=== PATIENT | female | born 1930 | race Caucasian/White ===

== ENCOUNTER 2017-07-23 20:26 | Inpatient (IN) | payer MEDICARE, OTHER ==
[~2017-07-23] VITALS: Ht 160 cm; Wt 88.9 kg
[~2017-07-23 20:26] MED LIST: CARTIA XT180 MG PO; GLUCOPHAGE XL500 MG PO; HYDROCHLOROTHIA25 MG PO; METFORMIN HCL500 M2 PO; PROTONIX40 MG PO; SENNA LAX8.6 MG PO; SYNTHROID125 MCG PO; TOPROL XL25 MG PO; Z.0.CARTIA XT180 MG PO; Z.0.HYDROCHLOROTHIA5 PO; Z.0.METOPROLOL SUCC2 PO; Z.0.SIMVASTATIN20 MG PO; Z.0.SYNTHROID150 MCG PO; ZOCOR20 MG PO
[2017-07-23] MEDS ORDERED: DIATRIZOATE MEGL/DIATRIZOA SOD 30 ML BTL PO ONE (20:54)
[2017-07-23 21:03] LABS: BASOPHILS # (AUTO) 0.1 (0.0-0.1); BASOPHILS % 0.7 % (0.0-1.0); EOSINOPHILS # (AUTO) 0.4 (0.0-0.4); EOSINOPHILS % 5.7 % (0.0-6.0); HEMATOCRIT 44.1 % (34.2-44.1); LYMPHOCYTES # (AUTO) 1.5 (1.0-3.2); LYMPHOCYTES % 22.3 % (18.0-39.1); MEAN CORPUSCULAR HEMOGLOBIN 31.8 pg (28-32); MEAN CORPUSCULAR VOLUME 93.4 fL (81-99); MONOCYTES # (AUTO) 0.6 (0.2-0.8); MONOCYTES % 9.1 % (4.4-11.3); NEUTROPHILS # (AUTO) 4.2 (2.1-6.9); NEUTROPHILS % 62.1 % (38.7-80.0); PLATELET COUNT 223 x10e3/uL (140-360); RED BLOOD COUNT 4.72 x10e6/uL (3.6-5.1); RED CELL DISTRIBUTION WIDTH 13.2 % (11.7-14.4)
[2017-07-23 21:15] LABS: INR 1.03; PROTHROMBIN TIME 12.7 seconds (11.9-14.5)
[2017-07-23 21:16] LABS: PARTIAL THROMBOPLASTIN TIME 33.5 seconds (23.8-35.5)
[2017-07-23] MEDS ORDERED: ONDANSETRON HCL INJ 2 MG/ML VIAL IV STA (21:16)
[2017-07-23 21:18] LABS: BILIRUBIN,URINE NEGATIVE (NEGATIVE); CLARITY,URINE CLEAR (CLEAR); COLOR,URINE YELLOW (YELLOW); KETONES,URINE NEGATIVE (NEGATIVE); LEUKOCYTE ESTERASE ,URINE NEGATIVE (NEGATIVE); NITRITE,URINE NEGATIVE (NEGATIVE); PROTEIN,URINE DIPSTICK NEGATIVE (NEGATIVE); URINE UROBILINOGEN 0.2 mg/dL (0.2 - 1)
[2017-07-23] MEDS ORDERED: ONDANSETRON HCL INJ 2 MG/ML VIAL ONE (21:22)
[2017-07-23 21:25] LABS: ALBUMIN 4.2 g/dL (3.5-5.0); ALBUMIN/GLOBULIN RATIO 1.3 (0.8-2.0); ANION GAP 15.4 mmol/L (8-16); CREATININE, SERUM 1.03 mg/dL (0.57-1.11); POTASSIUM 3.4 mmol/L (3.5-5.1)
[2017-07-23 21:39] LABS: BACTERIA,URINE FEW /HPF; EPITHELIAL CELLS,URINE FEW /LPF; RBC,URINE 0-5 /HPF (0-5); WBC,URINE (MAN) 0-5 /HPF (0-5)
[2017-07-23] MEDS: SODIUM CHLORIDE 0.9% 1000ML 1,000 ML IV SCH (21:41)
[2017-07-23] MEDS ORDERED: IOPAMIDOL 370 MG/ML 200 ML INFUS..BTL INJ ONE (22:17)
[2017-07-23] MEDS ORDERED: SODIUM CHLORIDE 0.9% 50ML 50 ML ONE (22:17)
[2017-07-23] MEDS ORDERED: DILTIAZEM 24HR180 MG PO (23:02)
[2017-07-23] MEDS ORDERED: SYNTHROID125 MCG PO (23:03)
[2017-07-23] MEDS ORDERED: METFORMIN HCL500 MG PO (23:03)
[2017-07-23] MEDS ORDERED: ANASTROZOLE1 MG PO (23:03)
[2017-07-23] MEDS ORDERED: HYDROCHLOROTHIA25 MG PO (23:04)
[2017-07-23] MEDS ORDERED: METOPROLOL SUCC50 MG PO (23:04)
[2017-07-23] MEDS ORDERED: SIMVASTATIN20 MG PO (23:04)
[2017-07-23] MEDS ORDERED: ASPIR 8181 MG PO (23:05)
[2017-07-23] MEDS ORDERED: VITAMIN E400 UNI1 PO (23:05)
[2017-07-23] MEDS ORDERED: ALEVE220 M1 PO (23:06)
--- NOTE | 2017-07-23 23:53 | Diagnostic Imaging Report ---
EXAM: CT Abdomen and Pelvis WITH contrast INDICATION: GI bleeding COMPARISON: 03/04/2011 TECHNIQUE: Abdomen and pelvis were scanned utilizing a multidetector helical scanner from the lung base to the pubic symphysis after administration of IV contrast. Coronal and sagittal reformations were obtained. Routine protocol was performed. Scan was performed when during portal venous phase. IV CONTRAST: 100 mL of Isovue-370 ORAL CONTRAST: Gastrografin RADIATION DOSE: Total DLP: 760.44 mGy*cm Estimated effective dose: (DLP x 0.015 x size factor) mSv COMPLICATIONS: None FINDINGS: LINES and TUBES: None. LOWER THORAX: There is bibasilar atelectasis. Coronary artery disease noted and severe calcification of the mitral annulus. HEPATOBILIARY: Stable, focal hypodensity in the right lobe of the liver suggestive of prior hepatic infarct and cystic degeneration. There are multiple scattered too small to characterize hypodensities in the liver, likely benign. No biliary ductal dilation. GALLBLADDER: No radio-opaque stones or sludge. No wall thickening. SPLEEN: No splenomegaly. PANCREAS: No focal masses or ductal dilatation. ADRENALS: No adrenal nodules KIDNEYS/URETERS: Kidneys enhance symmetrically. No hydronephrosis. 4.5 cm right renal simple cyst. Additional bilateral too small to characterize hypodensities, most likely renal cysts. No stones. GI TRACT: No abnormal distention, wall thickening, or evidence of bowel obstruction. There are diverticula within the colon without evidence of diverticulitis. Appendix is normal. PELVIC ORGANS/BLADDER: There are postop changes of hysterectomy and bilateral oophorectomies. LYMPH NODES: No lymphadenopathy. VESSELS: There is moderate atherosclerotic disease in the aorta and major arterial branches. PERITONEUM / RETROPERITONEUM: Postsurgical changes in the left lower quadrant BONES: There are degenerative changes in the lumbar spine. SOFT TISSUES: Small anterior ventral hernia containing few loops of the small bowel without obstruction best seen on sagittal image 75 IMPRESSION: 1. No evidence of acute intra-abdominal or pelvic abnormality. 2. The development of 4.5 cm right renal simple cyst. 3. Otherwise, stable examination. Signed by: Dr. Del Campbell M.D. on 07/23/2017 11:50 PM
[2017-07-24] VITALS (7 sets, daily range): BP systolic 129–165; BP diastolic 60–79
[2017-07-24] MEDS: SODIUM CHLORIDE 0.9% 1000ML 1,000 ML IV SCH ×4 (00:13→08:10)
[2017-07-24] MEDS ORDERED: DEXTROSE 50% SYRINGE 50 ML IV PRN (00:15)
--- OUTSIDE RECORDS SUMMARY | 2017-07-24 00:22 | XMS REPORT ---
Author Author [facility] Address Unknown Phone Unavailable Care Team Providers Care Beverage Manager Name Role Phone BRITT KEARNS Unavailable Unavailable Problems This patient has no known problems. Allergies, Adverse Reactions, Alerts This patient has no known allergies or adverse reactions. Medications This patient has no known medications. Results Test Description Test Time Test Comments Text Results Atomic Results Result Comments CT ABDOMEN/PELVIS W [place] [address] Patient Name: FARIBA HUERTA MR #: [id number] : 1930 Age/Sex: 86/F Req #: [id number] Adm Physician: Ordered by: BRITT KEARNS MD Report #: [id number] Location: ER Room/Bed: ___ Procedure: [id number] CT/CT ABDOMEN/PELVIS W Exam Date: 07/23/17 Exam Time: 2228 REPORT STATUS: Signed EXAM: CT Abdomen and Pelvis WITH contrast INDICATION: GI bleeding COMPARISON: 2010 TECHNIQUE: Abdomen and pelvis were scanned utilizing a multidetector helical scanner from the lung base to the pubic symphysis after administration of IV contrast. Coronal and sagittal reformations were obtained. Routine protocol was performed. Scan was performed when during portal venous phase. IV CONTRAST: 100 mL of Isovue-370 ORAL CONTRAST: Gastrografin RADIATION DOSE: Total DLP: 760.44 mGy*cm Estimated effective dose: (DLP x 0.015 x size factor) mSv COMPLICATIONS: None FINDINGS: LINES and TUBES: None. LOWER THORAX: There is bibasilar atelectasis. Coronary artery disease noted and severe calcification of the mitral annulus. HEPATOBILIARY: Stable, focal hypodensity in the right lobe of the liver suggestive of prior hepatic infarct and cystic degeneration. There are multiple scattered too small to characterize hypodensities in the liver, likely benign. No biliary ductal dilation. GALLBLADDER: No radio-opaque stones or sludge. No wall thickening. SPLEEN: No splenomegaly. PANCREAS: No focal masses or ductal dilatation. ADRENALS: No adrenal nodules KIDNEYS/URETERS : Kidneys enhance symmetrically. No hydronephrosis. 4.5 cm right renal simple cyst. Additional bilateral too small to characterize hypodensities, most likely renal cysts. No stones. GI TRACT: No abnormal distention, wall thickening, or evidence of bowel obstruction. There are diverticula within the colon without evidence of diverticulitis. Appendix is normal. PELVIC ORGANS/BLADDER: There are postop changes of hysterectomy and bilateral oophorectomies. LYMPH NODES: No lymphadenopathy. VESSELS: There is moderate atherosclerotic disease in the aorta and major arterial branches. PERITONEUM / RETROPERITONEUM: Postsurgical changes in the left lower quadrant BONES: There are degenerative changes in the lumbar spine. SOFT TISSUES: Small anterior ventral hernia containing few loops of the small bowel without obstruction best seen on sagittal image 75 IMPRESSION: 1. No evidence of acute intra-abdominal or pelvic abnormality. 2. The development of 4.5 cm right renal simple cyst. 3. Otherwise, stable examination. Signed by: Dr. Del Campbell M.D. on 07/23/2017 11:50 PM Dictated By: DEL LAGUERRE MD [id number] Transcribed By: KULWINDER on 07/23/17 8105 COPY TO: BRITT KEARNS MD
[2017-07-24] MEDS ORDERED: PNEUMOCOCCAL VACCINE POLYVALENT 23 MCG/0.5 ML VIAL IM ONE (05:15)
[2017-07-24] MEDS ORDERED: LEVOTHYROXINE SODIUM 125 MCG TAB PO SCH (06:30)
[2017-07-24] MEDS: INSULIN REGULAR, HUMAN 100 UNIT/1 ML 3ML VIAL SQ SCH ×4 (07:30→21:00)
[2017-07-24 08:35] LABS: HEMATOCRIT 39.3 % (34.2-44.1)
[2017-07-24] MEDS: DILTIAZEM HCL 180 MG CAP CD PO SCH (09:54)
[2017-07-24] MEDS: HYDROCHLOROTHIAZIDE 25 MG TAB PO SCH (09:54)
[2017-07-24] MEDS: VITAMIN E 400 UNIT CAP PO SCH (09:54)
[2017-07-24] MEDS: PANTOPRAZOLE 40 MG 10ML VIAL IV SCH (09:54)
[2017-07-24] MEDS: METOPROLOL SUCCINATE 50 MG TAB XL PO SCH (09:54)
[2017-07-24] MEDS: ANASTROZOLE 1 MG TAB PO SCH (09:54)
[2017-07-24 14:42] LABS: HEMOGLOBIN 12.9 g/dL (12.0-16.0)
--- NOTE | 2017-07-24 20:08 | History and Physical ---
PRIMARY CARE PROVIDER: Dr. Tommie Hale. CHIEF COMPLAINT: Rectal bleeding. HISTORY OF PRESENT ILLNESS: Ms. Adrian is an 86-year-old lady presenting with rectal bleeding times 1 day. It was still present when she presented to the ER. The patient has a history of diverticulosis. She has had 2 episodes of diverticular bleeding in the past and had a sigmoid resection due to diverticulosis with reversal subsequent 6 months later that was done in 1998. She had an episode of diverticular bleeding in 2010 and again in 2014. She had a colonoscopy done during the admission in 2014 which was here. She did not require blood transfusion at that time. Colonoscopy showed diverticulosis and hemorrhoids. REVIEW OF SYSTEMS: She denies fever, chills or weight loss. She denies sinus congestion or sore throat. She denies chest pain or palpitations. She denies shortness breath, wheezing or cough. Denies abdominal pain, diarrhea, nausea or vomiting. She has had bright red blood per rectum, hematochezia. She denies abdominal pain. She denies dysuria or flank pain. She denies rash or pruritus. She has bleeding as noted. She denies bruising and petechiae. She denies headache, vertigo or loss of consciousness. She denies depression, agitation, homicidal or suicidal ideation. PAST MEDICAL HISTORY: Significant for longstanding hypertension and type 2 diabetes and diverticulosis. As noted, the patient had a sigmoid resection for the diverticulosis in 1998. She has a distant history of hysterectomy. She had a partial thyroid resection for a goiter. She has had carpal tunnel surgery. She has had one knee replaced and she has had hernia repair. . REGULAR MEDICATIONS: Anastrozole 1 mg daily;+ evidently she also has a history of breast cancer. She is on diltiazem ER 240 mg daily. Hydrochlorothiazide 50 mg daily. Levothyroxine 125 mcg daily. Metoprolol ER 50 mg daily. Simvastatin 20 mg at bedtime. Vitamin E 400 units daily. Naprosyn 440 mg daily. Metformin 500 mg daily and aspirin 81 mg daily. ALLERGIES: PENICILLIN. FAMILY HISTORY: Remarkable for hypertension and diabetes. SOCIAL HISTORY: The patient is . Lithuanian is her primary language. She does not smoke, drink or use illegal drugs. She is generally independently functioning. PHYSICAL EXAM: PSYCHIATRIC: She is alert and oriented times 3 with normal mood and affect. CONSTITUTIONAL: She has a normal body habitus. Is in no acute distress. VITAL SIGNS: Blood pressure 143/67. Pulse 73 and regular. Respiratory rate 20. O2 sat 96% on room air. Temperature 97.1. HEENT: Head is atraumatic. Eyes are anicteric with clear conjunctivae. Ears and nares are without erythema or discharge. Oropharynx is clear. NECK: Is supple with no mass or thyromegaly. LYMPHATIC SYSTEM: Has no palpable cervical, axillary or inguinal adenopathy. CARDIOVASCULAR: Her heart has a regular rate and rhythm without murmur or extra heart sounds. No carotid bruits. No peripheral edema. Has palpable dorsal pedal pulses. RESPIRATORY: Clear to auscultation and percussion with normal respiratory effort. GASTROINTESTINAL: Abdomen is soft without organomegaly, masses or tenderness. Normal bowel sounds present. She has gross red blood per rectum on admission. CUTANEOUS: Her skin is warm and dry to touch with no rash or skin breakdown. MUSCULOSKELETAL: Joints are in normal alignment without erythema or swelling. She has no calf tenderness. NEUROLOGIC: Exam is nonfocal with intact cranial nerves and no motor or sensory deficits. DIAGNOSTIC STUDIES: CT scan of the abdomen shows no acute disease. UA is clear. CBC shows a white count of 6.72 with a normal differential. Hemoglobin 15.0, hematocrit 44.1 and platelet count 223,000. Subsequent hemoglobin 13.0, hematocrit 39.3, and hemoglobin 12.9 and hematocrit 38.0 at 6 hour intervals. Her coags are normal. Her chemistry shows a potassium of 3.4. Rest of her electrolytes are normal. CO2 is 29. Creatinine 1.03. BUN 22 for a GFR of 51. Calcium is 10.0. Glucose is 129 and then subsequently 119 and 119. Amylase 62. Lipase 43. Transaminases, bilirubin and alkaline phos are all normal. IMPRESSION AND PLAN 1. Hematochezia/rectal bleeding. Most likely due to the diverticulosis. The patient does not have diverticulitis and is nontender. There is no need for antibiotics. She has had no further bleeding today. Her hemoglobin and hematocrit is stable after the initial drop with hydration. GI has been consulted; however, in view of the fact that she had a colonoscopy done 2 years ago and doubt that they will proceed with that again. Will advance her diet and monitor her hemoglobin and hematocrit overnight and if the patient has no further bleeding and her blood counts remain stable, she potentially could go home tomorrow. 2. Hypertension is well controlled. Will continue the Cardizem and hydrochlorothiazide and metoprolol. 3. Type 2 diabetes, also well controlled. Continue metformin plus sliding scale insulin. 4. For prophylaxis the patient will be wearing SCDs for DVT prophylaxis and Protonix for GI prophylaxis. Job#: [id number] AUGUST
[2017-07-24] MEDS ORDERED: SIMVASTATIN 20 MG TAB PO SCH (21:00)
[2017-07-25] VITALS: BP 146/68
[2017-07-25] MEDS: SODIUM CHLORIDE 0.9% 1000ML 1,000 ML IV SCH (04:10)
--- NOTE | 2017-07-25 04:58 | Consultation ---
DATE OF CONSULTATION: July 24, 2017 HISTORY: This is 86-year-old who has history of hypertension, history of diabetes, presented to the hospital because of sudden onset of painless bleeding, which she described as bright red blood per rectum. She denies any nausea or vomiting along with this problem. She reports that she has colonoscopy about 2 years or so ago, which was supposedly normal. She had a CAT scan of the abdomen and pelvis, it was normal except diverticulosis. There is no evidence of diverticulitis. Her hemoglobin appeared to be stable. OTHER MEDICAL PROBLEM: Significant for history of diabetes, significant for history of hypertension, also history of previous sigmoid resections, previous carpal tunnel surgery as well as thyroid resection and hysterectomy. MEDICATIONS ON ADMISSION: Including diltiazem, metoprolol, anastrozole, hydrochlorothiazide, simvastatin, insulin, levothyroxine, and pantoprazole. ALLERGIES: NONE. SOCIAL HISTORY: Denies any alcohol use. FAMILY HISTORY: Noncontributory. REVIEW OF SYSTEMS: Denies any chest pain at this point. Denies any shortness of breath. Denies any dysphagia or odynophagia. Denies any dysuria, hematuria or any kind of syncopal episodes. PHYSICAL EXAMINATION: GENERAL: Awake, alert, appeared to be stable, not in acute distress at this point. VITAL SIGNS: Afebrile currently. HEAD, EYES, EARS, NOSE, AND THROAT: Normocephalic, atraumatic. Sclerae are anicteric. NECK: Supple. HEART: Regular. LUNGS: Clear. ABDOMEN: Soft. There is no distention at this point. It is nontender. EXTREMITIES: No clubbing. LAB VALUES: Significant for hemoglobin of 12.9, and BUN and creatinine are normal. CAT scan showed diverticulosis without any evidence of diverticulitis, otherwise is unremarkable. IMPRESSION: 1. Gastrointestinal bleed, likely secondary to diverticular bleeding. At this point, there is no more bleeding. Patient does not really want to do another colonoscopy at this point. 2. History of hypertension. 3. History of diabetes. RECOMMENDATIONS: Continue current care at this point. Home tomorrow if she continues to do well. Follow up with me in the office as an outpatient. Job#: [id number] cc:ELVER C. TEAGANDO JESSICA PEARL MD
[2017-07-25 06:13] LABS: BASOPHILS # (AUTO) 0.1 (0.0-0.1); BASOPHILS % 0.8 % (0.0-1.0); EOSINOPHILS # (AUTO) 0.5 (0.0-0.4); EOSINOPHILS % 7.2 % (0.0-6.0); HEMATOCRIT 41.5 % (34.2-44.1); HEMOGLOBIN 13.9 g/dL (12.0-16.0); LYMPHOCYTES # (AUTO) 1.3 (1.0-3.2); LYMPHOCYTES % 20.7 % (18.0-39.1); MEAN CORPUSCULAR HGB CONC 33.5 g/dL (31-35); MEAN CORPUSCULAR VOLUME 95.4 fL (81-99); MONOCYTES # (AUTO) 0.6 (0.2-0.8); NEUTROPHILS # (AUTO) 3.8 (2.1-6.9); NEUTROPHILS % 61.1 % (38.7-80.0); PLATELET COUNT 218 x10e3/uL (140-360); RED BLOOD COUNT 4.35 x10e6/uL (3.6-5.1); RED CELL DISTRIBUTION WIDTH 13.3 % (11.7-14.4)
[2017-07-25 06:31] LABS: ANION GAP 13.7 mmol/L (8-16); BLOOD UREA NITROGEN 10 mg/dL (7-26); BUN/CREATININE RATIO 12 (6-25); CALCIUM 9.6 mg/dL (8.4-10.2); CARBON DIOXIDE 30 mmol/L (22-29); CHLORIDE 101 mmol/L (98-107); CREATININE, SERUM 0.86 mg/dL (0.57-1.11); EST GLOMERULAR FILTRATION RATE > 60 ML/MIN (60-); GLUCOSE 117 mg/dL (74-118); POTASSIUM 3.7 mmol/L (3.5-5.1); SODIUM 141 mmol/L (136-145)
[2017-07-25] MEDS: INSULIN REGULAR, HUMAN 100 UNIT/1 ML 3ML VIAL SQ SCH ×3 (07:30→16:30)
[2017-07-25 08:22] VITALS: BP 154/78
[2017-07-25] MEDS ORDERED: PANTOPRAZOLE 40 MG 10ML VIAL IV SCH (09:00)
[2017-07-25] MEDS ORDERED: METFORMIN HCL 500 MG TAB PO SCH (09:00)
[2017-07-25 09:38] VITALS: BP 154/78
[2017-07-25] MEDS: METOPROLOL SUCCINATE 50 MG TAB XL PO SCH (09:38)
[2017-07-25] MEDS: VITAMIN E 400 UNIT CAP PO SCH (09:38)
[2017-07-25] MEDS: HYDROCHLOROTHIAZIDE 25 MG TAB PO SCH (09:38)
[2017-07-25] MEDS: PANTOPRAZOLE 40 MG 10ML VIAL IV SCH (09:38)
[2017-07-25] MEDS: ANASTROZOLE 1 MG TAB PO SCH (09:38)
[2017-07-25] MEDS: DILTIAZEM HCL 180 MG CAP CD PO SCH (09:38)
[2017-07-25 13:16] VITALS: BP 159/75
[2017-07-25 16:43] VITALS: BP 143/59
[2017-07-25] MEDS ORDERED: PNEUMOCOCCAL VACCINE POLYVALENT 23 MCG/0.5 ML VIAL ONE (18:43)
--- NOTE | 2017-07-26 14:59 | Discharge Summary ---
ADMITTING DIAGNOSIS: Hematochezia, rectal bleeding, most likely due to diverticulitis. SECONDARY DIAGNOSIS: Hypertension. TERTIARY DIAGNOSIS: Diabetes mellitus. For principal diagnosis the procedures were abdominal CT scan and examination. CT scan showed multiple diverticula inside the colon but no signs of diverticulitis, no other abnormalities noted. Gastrointestinal consult with Dr. William. Evaluated by GI. Rectal bleeding stopped at the time. GI considered most likely cause being diverticula, no diverticulitis, wanted to follow up in outpatient post discharge. Initial labs showed hemoglobin 15. There was a drop of hemoglobin to 13, settling at 13.9 over 2 days. At the time of discharge, the patient was medically stable, cleared by GI, sent back home to live with family at prior level of care. Instructed on discharge to follow up with primary care within 10 days, follow up with Dr. William's office and GI consult within 7 days. Return home on prior GI diet, avoid nuts. Medications discharged home on: Anastrozole 1 mg oral daily, aspirin 81 mg daily, diltiazem 180 mg capsule oral daily, hydrochlorothiazide 25 mg tablet x2 daily, levothyroxine 125 mcg daily, metformin 500 mg daily, metoprolol 50 mg daily, naproxen 440 mg daily, simvastatin 20 mg daily, vitamin E mix 400 units oral daily. Dictated by: Carlos Angel PA-C JESSICA CHONG MD Job#: [id number] EV
--- NOTE | 2017-07-26 15:10 | Discharge Summary ---
ADMITTING DIAGNOSES 1. Hematochezia. 2. Diverticulitis. DISCHARGE DIAGNOSES 1. Hematochezia. 2. Diverticulitis. 3. Hypertension. 4. Diabetes mellitus, type 2. Upon initial arrival at the hospital, the patient had hematochezia times 1 day. Evaluated in the ER and admitted. GI consulted. Abdominal CT done. Results of abdominal CT revealed multiple diverticula in the colon. No signs of diverticulitis. No other abnormalities noted. GI conclusion was hematochezia secondary to diverticula. No current treatment required. Recommended followup with GI as outpatient. Initial labs showed a drop of hemoglobin from 15 to 13 on the initial day. On the 2nd day, hemoglobin was 13.9 and stable. The patient was medically stable on the . The patient was discharged home to family, which is prior level of care. DIET: GI diet, avoid nuts. DISCHARGE MEDICATIONS: See medical record for discharge meds. DISCHARGE INSTRUCTIONS: Follow up with primary care within 10 days. Follow up with GI within 7 days. Return to hospital if significant GI bleeding returned. Dictated by Carlos Angel PA-C JESSICA CHONG MD Job#: [id number]
== END 2017-07-25 18:55 | disposition home or self-care (01) | DRG 379 ==
LOC: ER 20:26 → ERHOLD 07-24 00:20 → MED/SURG 07-24 00:45
PROVIDERS: ADMIT Internal Medicine; ATTEND Internal Medicine
DX: K57.91 Diverticulosis of intestine, part unspecified, without perforation or abscess with bleeding (principal); E11.65 Type 2 diabetes mellitus with hyperglycemia; I10 Essential (primary) hypertension; E87.6 Hypokalemia; Z23 Encounter for immunization; Z90.49 Acquired absence of other specified parts of digestive tract; Z79.82 Long term (current) use of aspirin
CPT/HCPCS: 36415; 74177; 80048; 80053; 81001; 82150; 82948; 83690; 85014; 85018; 85025; 85610; 85730; 86850; 86900; 90732; 99284; J2405; J7030; Q9967

== ENCOUNTER 2017-10-06 11:20 | Emergency (ER) | payer MEDICARE ==
[~2017-10-06] VITALS: Ht 160 cm; Wt 83.9 kg
[~2017-10-06 11:20] MED LIST changes: +ALEVE220 M1 PO; +ANASTROZOLE1 MG PO; +ASPIR 8181 MG PO; +DILTIAZEM 24HR180 MG PO; +METFORMIN HCL500 MG PO; +METOPROLOL SUCC50 MG PO; +SIMVASTATIN20 MG PO; +VITAMIN E400 UNI1 PO
--- OUTSIDE RECORDS SUMMARY | 2017-10-06 11:22 | XMS REPORT | Continuity of Care Document ---
Author Author [facility] Organization [facility] Address [address] [place] [address] Phone Unavailable Care Team Providers Care Program Support Clerk Name Role Phone ELVER CANDELARIA DO PCP Insurance Providers Guarantor Bernice Huerta Address [address] [place] [address] Email [email or web address] Payer [facility] Policy Number [id number] Subscriber's Name Fariba Huerta Relationship 18 Self / Same As Patient Group Number [id number] Effective Date 17 Advance Directives Directive Response Recorded Date/Time Does the patient have an advance directive? Yes 07/24/17 1:14am If yes, is advance directive on file with [facility]? No 07/24/17 1:14am If not on file with [facility] will patient provide a copy? Yes 07/24/17 1:14am Do you have a Directive to Physician? No 07/23/17 8:34pm Do you have a Medical Power of Hourly Associate? No 07/23/17 8:34pm Do you have an out of hospital Do Not Resuscitate Order? No 07/23/17 8:34pm Do you have any special needs we should be aware of? No 07/23/17 8:34pm Do you have a support person here with you today? Yes 07/23/17 8:34pm Did patient receive Notice of Privacy Practices? Yes 07/23/17 8:34pm Did patient receive patient rights and responsibilities? Yes 07/23/17 8:34pm Problems Medical Problem Onset Date Status GI bleed 11/30/2014 Acute Rectal bleeding Unknown Medications Current Home Medications Medication Dose Units Route Directions Days Qty Instructions Start Date Anastrozole 1 Mg Tablet 1 Mg Oral Daily Aspirin (Aspir 81) 81 Mg Tablet.dr 81 Mg Oral Daily Diltiazem Hcl (Diltiazem 24HR Er) 180 Mg Capcr 240 Mg Oral Daily Hydrochlorothiazide 25 Mg Tablet 50 Mg Oral Daily 30 Tab Levothyroxine Sodium (Synthroid) 125 Mcg Tab 125 Mcg Oral Today At 6:30AM 30 Tab Metformin Hcl 500 Mg Tablet 500 Mg Oral Daily 60 Tab Metoprolol Succinate 50 Mg Tab.er.24h 50 Mg Oral Daily Naproxen Sodium (Aleve) 220 Mg Capsule 440 Mg Oral Daily Simvastatin 20 Mg Tablet 20 Mg Oral Today At 9:00PM Vitamin E Mixed (Vitamin E) 400 Unit Capsule 400 Units Oral Daily Past Home Medications Medication Directions Ordered Status Diltiazem Hcl (Cartia Xt) 180 Mg Cap.er.24h, 180 Mg Oral Twice A Day Discontinued Hydrochlorothiazide 25 Mg Tablet, 50 Mg Oral Daily Discontinued Levothyroxine Sodium (Synthroid) 125 Mcg Tab, 125 Mcg Oral Today At 6:30AM Discontinued Levothyroxine Sodium (Synthroid) 150 Mcg Tablet, 1 Tab Oral Daily Discontinued Metformin Hcl (Metformin Hcl Er) 500 Mg Tab.er.24, 500 Mg Oral Daily Discontinued Metoprolol Succinate (Toprol Xl) 25 Mg Tab.er.24h, 25 Mg Oral Daily Discontinued Pantoprazole Sodium (Protonix) 40 Mg Suspdr.pkt, 40 Mg Oral Daily 12/05/14 Discontinued Sennosides (Senna Lax) 8.6 Mg Tablet, 8.6 Mg Oral Daily 12/05/14 Discontinued Simvastatin (Zocor) 20 Mg Tablet, 20 Mg Oral Bedtime Discontinued Social History Social History Problem Response Recorded Date/Time Onset Date Status Hx Psychiatric Problems No 07/24/2017 1:14am Not Applicable Not Applicable Hx Eating Disorder No 07/24/2017 1:14am Not Applicable Not Applicable Hx Substance Use Disorder No 07/24/2017 1:14am Not Applicable Not Applicable Hx Depression No 07/24/2017 1:14am Not Applicable Not Applicable Hx Alcohol Use No 07/24/2017 1:14am Not Applicable Not Applicable Hx Substance Use Treatment No 07/24/2017 1:14am Not Applicable Not Applicable Hx Physical Abuse No 07/24/2017 1:14am Not Applicable Not Applicable Smoking Status Start Date Stop Date Never Smoker Hospital Discharge Instructions No hospital discharge instruction information available. Plan of Care Discharge Date 07/25/17 6:55pm Disposition HOME, SELF-CARE Instructions/Education Provided Diverticulitis Prescriptions See Medication Section Referrals ANNE WHITE MD (Gastroenterology) Order Date: 1 Week Entered Date: 07/25/2017 6:25pm Address: [address] [place] [address] [place] [address] Additional Instructions/Education Follow prior home diet given by GI. Functional Status Query Response Date Recorded Assistive Devices None July 24, 2017 1:24am Ambulation Ability Independent July 24, 2017 1:24am Toileting Ability Independent July 25, 2017 6:16pm Allergies, Adverse Reactions, Alerts Allergen Type Severity Reaction Status Last Updated Penicillin Allergy Unknown Active 07/24/17 Immunizations No immunization information available. Vital Signs Acute Vital Signs Vital Response Date/Time Temperature (Fahrenheit) 98.7 degrees F (97.6 - 99.5) 07/25/2017 4:43pm Pulse Pulse Rate (adult) 59 bpm (60 - 90) 07/25/2017 4:43pm Respiratory Rate 20 bpm (12 - 24) 07/25/2017 4:43pm Blood Pressure 143/59 mm Hg 07/25/2017 4:43pm Height 5 ft 3 in 07/23/2017 8:36pm Weight 196 lb 07/24/2017 1:14am Body Mass Index 34.7 kg/m^2 07/24/2017 1:14am Results Laboratory Results Test Name Result Units Flags Reference Collection Date/Time Result Date/ Time Comments White Blood Count 6.28 x10e3/uL 4.8-10.8 07/25/2017 6:00am 07/25/2017 6 :17am Red Blood Count 4.35 x10e6/uL 3.6-5.1 07/25/2017 6:00am 07/25/2017 6: 17am Hemoglobin 13.9 g/dL 12.0-16.0 07/25/2017 6:0007/25/2017 6:17am Hematocrit 41.5 % 34.2-44.1 07/25/2017 6:00am 07/25/2017 6:17am Mean Corpuscular Volume 95.4 fL 81-99 07/25/2017 6:0007/25/2017 6: 17am Mean Corpuscular Hemoglobin 32.0 pg 28-32 07/25/2017 6:0007/25/2017 6:17am Mean Corpuscular Hemoglobin Concent 33.5 g/dL 31-35 07/25/2017 6:0007/25/2017 6:17am Red Cell Distribution Width 13.3 % 11.7-14.4 07/25/2017 6:002017 6:17am Platelet Count 218 x10e3/uL 140-360 07/25/2017 6:00am 07/25/2017 6: 17am Neutrophils (%) (Auto) 61.1 % 38.7-80.0 07/25/2017 6:0007/25/2017 6: 17am Lymphocytes (%) (Auto) 20.7 % 18.0-39.1 07/25/2017 6:0007/25/2017 6: 17am Monocytes (%) (Auto) 10.0 % 4.4-11.3 07/25/2017 6:0007/25/2017 6: 17am Eosinophils (%) (Auto) 7.2 % H 0.0-6.0 07/25/2017 6:0007/25/2017 6: 17am Basophils (%) (Auto) 0.8 % 0.0-1.0 07/25/2017 6:0007/25/2017 6:17am IM GRANULOCYTES % 0.2 % 0.0-1.0 07/25/2017 6:0007/25/2017 6:17am Neutrophils # (Auto) 3.8 2.1-6.9 07/25/2017 6:0007/25/2017 6:17am Lymphocytes # (Auto) 1.3 1.0-3.2 07/25/2017 6:00am 07/25/2017 6:17am Monocytes # (Auto) 0.6 0.2-0.8 07/25/2017 6:00am 07/25/2017 6:17am Eosinophils # (Auto) 0.5 H 0.0-0.4 07/25/2017 6:00am 07/25/2017 6: 17am Basophils # (Auto) 0.1 0.0-0.1 07/25/2017 6:00am 07/25/2017 6:17am Absolute Immature Granulocyte (auto 0.01 x10e3/uL 0-0.1 07/25/2017 6: 00am 07/25/2017 6:17am Prothrombin Time 12.7 seconds 11.9-14.5 07/23/2017 8:40pm 07/23/2017 9: 28pm Prothromb Time International Ratio 1.03 07/23/2017 8:40pm 2017 9:28pm Oral Anticoagulant Therapy INR Values: 1. Low Intensity Therapy 1.5 - 2.0 2. Moderate Intensity Therapy 2.0 - 3.0 3. High Intensity Therapy(1) 2.5 - 3.5 4. High Intensity Therapy(2) 3.0 - 4.0 5. Panic Value INR > 5.0 Activated Partial Thromboplast Time 33.5 seconds 23.8-35.5 07/23/2017 8: 40pm 07/23/2017 9:28pm Urine Color YELLOW YELLOW 07/23/2017 K 07/23/2017 9:29pm Urine Clarity CLEAR CLEAR 07/23/2017 K 07/23/2017 9:29pm Urine Specific [place] 1.015 1.010-1.025 07/23/2017 K 07/23/2017 9: 29pm Urine pH 6.5 5 - 7 07/23/2017 UNK 07/23/2017 9:29pm Urine Leukocyte Esterase NEGATIVE NEGATIVE 07/23/2017 K 07/23/2017 9:29pm Urine Nitrite NEGATIVE NEGATIVE 07/23/2017 UNK 07/23/2017 9:29pm Urine Protein NEGATIVE NEGATIVE 07/23/2017 UNK 07/23/2017 9:29pm Urine Glucose (UA) NEGATIVE NEGATIVE 07/23/2017 UN07/23/2017 9: 29pm Urine Ketones NEGATIVE NEGATIVE 07/23/2017 K 07/23/2017 9:29pm Urine Urobilinogen 0.2 mg/dL 0.2 - 1 07/23/2017 K 07/23/2017 9:29pm Urine Bilirubin NEGATIVE NEGATIVE 07/23/2017 K 07/23/2017 9:29pm Urine Blood NEGATIVE NEGATIVE 07/23/2017 K 07/23/2017 9:29pm Urine WBC 0-5 /HPF 0-5 07/23/2017 K 07/23/2017 9:39pm Urine RBC 0-5 /HPF 0-5 07/23/2017 K 07/23/2017 9:39pm Urine Bacteria FEW /HPF NONE 07/23/2017 K 07/23/2017 9:39pm Urine Epithelial Cells FEW /LPF NONE 07/23/2017 [facility] 07/23/2017 9:39pm Sodium Level 141 mmol/L 136-145 07/25/2017 6:00am 07/25/2017 6:46am Potassium Level 3.7 mmol/L 3.5-5.1 07/25/2017 6:00am 07/25/2017 6:46am Chloride Level 101 mmol/L 98-107 07/25/2017 6:00am 07/25/2017 6:46am Carbon Dioxide Level 30 mmol/L H -07/25/2017 6:00am 07/25/2017 6: 46am Anion Gap 13.7 mmol/L 8-07/25/2017 6:00am 07/25/2017 6:46am Blood Urea Nitrogen 10 mg/dL -07/25/2017 6:00am 07/25/2017 6:46am Creatinine 0.86 mg/dL 0.57-1.11 07/25/2017 6:00am 07/25/2017 6:46am BUN/Creatinine Ratio 12 6-07/25/2017 6:00am 07/25/2017 6:46am Estimat Glomerular Filtration Rate > 60 ML/MIN 6007/25/2017 6:00am 6:46am Ranges were taken from the National Kidney Disease Education Program and the National Kid[employer] Foundation literature. Reference ranges: 60 or greater: Normal 16-59 (for 3 consecutive months): Chronic kidney disease 15 or less: Kidney failure Glucose Level 117 mg/dL 74-118 07/25/2017 6:00am 07/25/2017 6:46am Calcium Level 9.6 mg/dL 8.4-10.2 07/25/2017 6:00am 07/25/2017 6:46am Bedside Glucose 140 mg/dL H 70-120 07/25/2017 3:41pm 07/25/2017 4:26pm Meter ID: [id number] Total Bilirubin 0.5 mg/dL 0.2-1.2 07/23/2017 8:40pm 07/23/2017 9:27pm Aspartate Amino Transf (AST/SGOT) 17 IU/L 5-34 07/23/2017 8:40pm 2017 9:27pm Alanine Aminotransferase (ALT/SGPT) 14 IU/L 0-55 07/23/2017 8:40pm 9:27pm Total Protein 7.5 g/dL 6.5-8.1 07/23/2017 8:40pm 07/23/2017 9:27pm Albumin 4.2 g/dL 3.5-5.0 07/23/2017 8:40pm 07/23/2017 9:27pm Globulin 3.3 g/dL 2.3-3.5 07/23/2017 8:40pm 07/23/2017 9:27pm Albumin/Globulin Ratio 1.3 0.8-2.0 07/23/2017 8:40pm 07/23/2017 9: 27pm Alkaline Phosphatase 57 IU/L 40-150 07/23/2017 8:40pm 07/23/2017 9: 27pm Amylase Level 62 U/L 25-125 07/23/2017 8:40pm 07/23/2017 9:27pm Lipase 43 U/L 8-78 07/23/2017 8:40pm 07/23/2017 9:27pm Procedures Procedure Status Date Provider(s) Computed tomography of abdomen and pelvis with contrast Active 07/23/17 BRITT KEARNS MD Encounters Encounter Location Arrival/Admit Date Discharge/Depart Date Attending Provider Discharged Inpatient [facility] 07/24/17 12:20am 6:55pm JESSICA CHONG MD
[2017-10-06] MEDS ORDERED: ACETAMINOPHEN 325 MG TAB PO ONE (11:30)
--- NOTE | 2017-10-06 13:38 | Diagnostic Imaging Report ---
PROCEDURE:X-RAY RIGHT SHOULDER, COMPLETE COMPARISON:None. INDICATIONS:FALL FINDINGS: Generalized osteopenia, which limits evaluation of the bony structures. Widening of the right acromioclavicular interval, consistent with grade 2 a.c. separation in the setting of trauma. Normal coracoclavicular interval. No definite acute, displaced fracture. No lytic or blastic lesion. Mild soft tissue swelling. CONCLUSION: Widening of the right acromioclavicular interval, consistent with grade 2 a.c. separation in the setting of trauma. No definite acute, displaced fracture, however, generalized osteopenia limits evaluation of the bony structures. Correlate clinically for need for further imaging. . Martinez Lofton M.D. Dictated by: Martinez Lofton M.D. on 10/06/2017 at 13:39 Electronically approved by: Martinez Lofton M.D. on 10/06/2017 at 13:39
--- NOTE | 2017-10-06 13:42 | Diagnostic Imaging Report ---
PROCEDURE:HAND RIGHT 3 VIEWS AP \T\ LAT COMPARISON:None. INDICATIONS:FALL FINDINGS: Generalized osteopenia, which limits evaluation of bony structures. Ill-defined lucency projecting over the scaphoid bone seen in the lateral view, however, there is associated linear sclerosis. Moderate degenerative changes in the form of joint space narrowing and osteophyte formation in the distal interphalangeal joints, first carpometacarpal joint. Mild joint space narrowing in the carpal rows. No displaced fractures. Mild soft tissue swelling in the wrist. CONCLUSION: Findings in the scaphoid bone may represent chronic trauma/fracture, however, an acute superimposed injury/fracture can be considered, given the setting of trauma. Recommend dedicated wrist films for further evaluation. Correlate for point tenderness. Martinez Lofton M.D. Dictated by: Martinez Lofton M.D. on 10/06/2017 at 13:44 Electronically approved by: Martinez Lofton M.D. on 10/06/2017 at 13:44
--- NOTE | 2017-10-06 13:44 | Diagnostic Imaging Report ---
PROCEDURE:X-RAY RIGHT ELBOW, COMPLETE COMPARISON:None. INDICATIONS:FALL FINDINGS: Generalized osteopenia, which limits evaluation of the bony structures. No acute, displaced fracture or dislocation. No lytic or blastic lesions. No posterior fat pad elevation. Soft tissues are grossly unremarkable. CONCLUSION: Generalized osteopenia, which limits evaluation of the bony structures. No acute, displaced fracture or dislocation. Martinez Lofton M.D. Dictated by: Martinez Lofton M.D. on 10/06/2017 at 13:45 Electronically approved by: Martinez Lofton M.D. on 10/06/2017 at 13:45
--- NOTE | 2017-10-06 13:45 | Diagnostic Imaging Report ---
PROCEDURE:X-RAY RIGHT KNEE, THREE OR MORE VIEWS COMPARISON:None. INDICATIONS:FALL FINDINGS: Generalized osteopenia, which limits evaluation of bony structures. No acute displaced fracture or dislocation. Status post right total knee replacement, with intact hardware and satisfactory alignment. Soft tissues are grossly unremarkable. CONCLUSION: No acute abnormalities. Martinez Lofton M.D. Dictated by: Martinez Lofton M.D. on 10/06/2017 at 13:47 Electronically approved by: Martinez Lofton M.D. on 10/06/2017 at 13:47
[2017-10-06 14:27] VITALS: BP 115/52
== END 2017-10-06 14:40 | disposition home or self-care (01) ==
LOC: ER 11:20
DX: S40.011A Contusion of right shoulder, initial encounter (principal); S50.01XA Contusion of right elbow, initial encounter; S60.221A Contusion of right hand, initial encounter; S80.01XA Contusion of right knee, initial encounter; W18.39XA Other fall on same level, initial encounter; Y92.488 Other paved roadways as the place of occurrence of the external cause; I10 Essential (primary) hypertension; E11.9 Type 2 diabetes mellitus without complications; Z85.3 Personal history of malignant neoplasm of breast
CPT/HCPCS: 99283